=== PATIENT | male | born 1940 | race Caucasian/White ===

== ENCOUNTER 2017-07-29 08:00 | Day surgery (SDC) | payer MEDICARE | END 2017-07-29 22:36 | disposition home or self-care (01) | LOC: WOUND 08:00 | DX: Z48.00 Encounter for change or removal of nonsurgical wound dressing (principal); L89.312 Pressure ulcer of right buttock, stage 2; L89.322 Pressure ulcer of left buttock, stage 2; E11.9 Type 2 diabetes mellitus without complications; I10 Essential (primary) hypertension; J44.9 Chronic obstructive pulmonary disease, unspecified; M96.1 Postlaminectomy syndrome, not elsewhere classified; M51.36 Other intervertebral disc degeneration, lumbar region; M54.5 Low back pain | CPT/HCPCS: G0463 ==

== ENCOUNTER 2017-08-09 00:14 | Day surgery (SDC) | payer MEDICARE | END 2017-08-09 16:48 | disposition home or self-care (01) | LOC: WOUND 00:14 | DX: Z48.00 Encounter for change or removal of nonsurgical wound dressing (principal); L89.322 Pressure ulcer of left buttock, stage 2; L89.312 Pressure ulcer of right buttock, stage 2; E11.622 Type 2 diabetes mellitus with other skin ulcer; I10 Essential (primary) hypertension; J44.9 Chronic obstructive pulmonary disease, unspecified; M96.1 Postlaminectomy syndrome, not elsewhere classified; M51.36 Other intervertebral disc degeneration, lumbar region; M54.5 Low back pain; Z92.3 Personal history of irradiation; Z85.47 Personal history of malignant neoplasm of testis; Z90.79 Acquired absence of other genital organ(s) | CPT/HCPCS: G0463 ==

== ENCOUNTER 2017-08-17 09:15 | Day surgery (SDC) | payer MEDICARE | END 2017-08-17 12:23 | disposition home or self-care (01) | LOC: WOUND 09:15 | DX: Z48.00 Encounter for change or removal of nonsurgical wound dressing (principal); L89.312 Pressure ulcer of right buttock, stage 2; L89.322 Pressure ulcer of left buttock, stage 2; E11.622 Type 2 diabetes mellitus with other skin ulcer; I10 Essential (primary) hypertension; J44.9 Chronic obstructive pulmonary disease, unspecified; M96.1 Postlaminectomy syndrome, not elsewhere classified; M51.36 Other intervertebral disc degeneration, lumbar region; M54.5 Low back pain; Z85.47 Personal history of malignant neoplasm of testis; Z92.3 Personal history of irradiation | CPT/HCPCS: G0463 ==